=== PATIENT | male | born 2000 | race Caucasian/White ===

== ENCOUNTER 2020-01-24 16:02 | Emergency (ER) | payer SELFPAY ==
[~2020-01-24] VITALS: Ht 175.3 cm; Wt 61.0 kg
[2020-01-24 16:45] VITALS: BP 150/78
[2020-01-24] MEDS ORDERED: BACITRACIN ZINC OINT UDPKT TOP ONE (16:45)
[2020-01-24] MEDS ORDERED: IBUPROFEN 600MG TABLET PO ONE (16:45)
[2020-01-24] MEDS: TETANUS, DIPHTHERIA, PERTUSSIS VAC/PF 0.5ML (>7YR OLD) IM ONE (16:45)
[2020-01-24] MEDS ORDERED: LIDOCAINE 1%/EPI 1:100,000 10 ML VIAL IJ ONE (16:45)
[2020-01-24] MEDS ORDERED: LIDOCAINE HCL/EPINEPHRINE 1%-EPI 1:100,000 20 ML VIAL INFIL NR (17:15)
== END 2020-01-24 19:32 | disposition home or self-care (01) ==
LOC: ER 16:02
DX: S01.81XA Laceration without foreign body of other part of head, initial encounter (principal); Y04.2XXA Assault by strike against or bumped into by another person, initial encounter; Y93.89 Activity, other specified; Y92.89 Other specified places as the place of occurrence of the external cause
CPT/HCPCS: 12011; 70450; 90715; 99284; J3490

== ENCOUNTER 2020-02-05 22:46 | Emergency (ER) | payer SELFPAY ==
[~2020-02-05] VITALS: Ht 175.3 cm; Wt 66.0 kg
[2020-02-05 22:54] VITALS: BP 117/78
== END 2020-02-05 23:58 | disposition home or self-care (01) ==
LOC: ER 22:46
DX: S01.81XD Laceration without foreign body of other part of head, subsequent encounter (principal); Z48.02 Encounter for removal of sutures; X58.XXXD Exposure to other specified factors, subsequent encounter
CPT/HCPCS: 99281